=== PATIENT | female | born 1965 | race Caucasian/White ===

== ENCOUNTER 2023-12-09 10:02 | Emergency (ER) | payer OTHER, SELFPAY ==
[2023-12-09 10:16] VITALS: BP 141/64; PULSE 62; RESP 20; TEMP 36.6; O2SAT 100
[2023-12-09 10:30] VITALS: BP 141/64; PULSE 62; RESP 20; TEMP 36.6; O2SAT 100
--- NOTE | 2023-12-09 10:56 | ED_ITS ---
HPI - Eye Problem General Chief complaint: Eye Problems Stated complaint: Eye infection Time Seen by Provider: 12/09/23 10:56 Source: patient, RN notes reviewed and old records reviewed Mode of arrival: ambulatory Limitations: no limitations History of Present Illness HPI Narrative: 58-year-old female to [facility] with complaint of purulent drainage from left day starting on Friday followed by left upper eyelid redness, swelling. patient states pain is 5 or 6/10. Patient has attempted to treat with warm wet washcloth at home alternating with ice packs and ibuprofen as well. Patient wearing contacts. patient resting uncomfortably in exam room in no acute distress. Related Data Allergies Allergy/AdvReac Type Severity Reaction Status Date / Time No Known Allergies Allergy Verified 12/09/23 10:29 Review of Systems Review of Systems: All systems reviewed & are unremarkable except as noted in HPI and below Constitutional: Constitutional: Reports no additional constitutional complaints Eyes: Eyes: Reports as per HPI, Denies blurry vision, Reports eye discharge, Reports eye pain ( Left upper eyelid) and Reports requires corrective lenses ENT: Reports system reviewed and no additional complaints, except as documented Cardiovascular: Cardiovascular: Reports no additional cardiovascular complaints, Denies chest pain and Denies dyspnea Respiratory: Respiratory: Reports no additional respiratory complaints, Denies cough and Denies dyspnea Musculoskeletal: Musculoskeletal: Reports no additional musculoskeletal complaints Neurologic: Reports system reviewed and no additional complaints, except as documented Psychiatric: Psychiatric: Reports no additional psychiatric complaints PMFSH Comments At the time of my signature, I reviewed and agree with the nursing past medical, surgical, social, and family history. There is no relevant family history pertinent to the patient complaint. Exam Const: General: cooperative, healthy appearing, no acute distress, alert, uncomfortable and well nourished Nutritional Appearance: well nourished Orientation/consciousness: patient oriented x3 Limitations: no limitations HENMT: Head: normal to inspection Ears: external ears normal Face/Nose/Sinus: Normal external nose present, Normal nares present, normal facial exam, No erythema and No edema Face and sinus: normal facial exam, no erythema and no edema Mouth: Yes Normal oral and palatal mucosa present Eyes: Visual Anne: normal visual anne by confrontation Alignment and Position: alignment normal and position normal Periorbital: periorbital fin dings normal Eyelids: eyelid abnormality left upper eyelid erythema, swelling and tenderness Conjunctivae: conjunctival abnormality left conjunctival injection localized ( left upper) Sclera: scleral abnormality left scleral exudate Pupils: Equal, round and reactive pupils present, Pupils normal by confrontation and Pupil accommodation reflex normal Neck: Neck: normal visual inspection, full ROM and no meningeal signs Chest: Chest palpation & inspection: normal inspection of the chest Resp: Effort & Inspection: normal respiratory effort and able to speak in complete sentences Cardio: Jugular venous distension: no JVD Rate: regular rate Back/Spine/Pelvis: Cervical Spine: cervical ROM normal Skin: General skin exam: normal color, no rashes or lesions noted and turgor normal Neuro: General: patient oriented x3, gait normal, moves all extremities and no meningeal signs Speech: normal speech Gait exam (Neuro): Normal gait present Extrem: General: normal to inspection, full ROM and capillary refill normal Psych: Appearance: grossly normal and well kempt Course Course Emergency Course: Some parts of this dictation were generated by voice recognition software and may contain typographical and/or grammatical inaccuracies. Level of Care: Express Care Visit Vital Signs Vital signs: Vital Signs Temperature 36.6 C 12/09/23 10:16 Pulse Rate 62 12/09/23 10:16 Respiratory Rate 20 12/09/23 10:16 Blood Pressure 141/64 H 12/09/23 10:16 Pulse Oximetry 100 12/09/23 10:16 Oxygen Delivery Room Air 12/09/23 10:16 Temperature 36.6 C 12/09/23 10:30 Pulse Rate 62 12/09/23 10:30 Respiratory Rate 20 12/09/23 10:30 Blood Pressure 141/64 H 12/09/23 10:30 Pulse Oximetry 100 12/09/23 10:30 Oxygen Delivery Room Air 12/09/23 10:30 reviewed MDM - Eye Problem MDM Narrative Medical decision making narrative: 58-year-old female to [facility] Care with complaint of purulent drainage from left day starting on Friday followed by left upper eyelid redness, swelling. patient states pain is 5 or 6/10. Patient has attempted to treat with warm wet washcloth at home alternating with ice packs and ibuprofen as well. Patient wearing contacts. patient resting uncomfortably in exam room in no acute distress. on exam, left upper lateral eyelid erythematous, edematous, acutely tender. Left upper conjunctiva full erythema. Scleral exudate. Patient is sitting uncomfortably in exam room nontoxic in appearance. Patient appropriate for outpatient treatment and follow-up. Discharge instructions reviewed with patient, as well as provided in writing per nursing staff. The instructions also include specific and strict return/GO TO THE ER as well as f/u information. All questions have been answered, and the patient deny any further questions with discharge and discharge plan. Some parts of this dictation were generated by voice recognition software and may contain typographical and/or grammatical inaccuracies. Differential Diagnosis Differential diagnosis: Likely corneal abrasion, conjunctivitis, acute iritis, hyphema, periorbital cellulitis, subconjunctival hemorrhage, glaucoma, corneal ulcer and ruptured globe Discharge Plan Discharge Clinical Impression: Bacterial conjunctivitis Hordeolum externum (stye) Qualifiers: Laterality: left Eyelid: upper Qualified Code(s): H00.014 - Hordeolum externum left upper eyelid Patient Disposition: Home, Self-Care Condition: Stable Instructions: Stye (ED) Additional Instructions: please review touch instruction regarding stye and implement suggestions as tolerated please finish entire course of antibiotic eye drop treatment for new or worsening symptoms go directly to emergency department Prescriptions: New ofloxacin 0.3 % drops See Rx Instructions .ROUTE .COMPLEX Qty: 10 0RF Rx Instructions: into left eye put 1-2 drps into affected eye(s) every 2-4 h x 2 days, then 1- 2 drps 4 times/day days 3-7; Follow-up/Referrals: PHYSICIAN,WAITER/WAITRESS [employer] [Primary Care Provider] - Stand Alone Forms: Work/School Release IP
== END 2023-12-09 11:15 | disposition home or self-care (01) ==
PROVIDERS: Emergency Provider Nurse Practitioner Family
DX: H10.9 Unspecified conjunctivitis (principal); H00.014 Hordeolum externum left upper eyelid
CPT/HCPCS: 99203; G0463